=== PATIENT | female | born 1985 | race Caucasian/White ===

== ENCOUNTER → 2023-12-07 | Outpatient (CLI) | payer BC ==
[~2023-12-07] MED LIST: AMOCLA875 PO; AZIT250 PO; CALCA500CH PO; DEXL60CA3; DEXL60CA3 PO; HYDACE5 PO; Hair, Skin & N1 EACH PO; IBUP400 PO; OXYACE5T PO; Percocet 5-3251 EACH PO; SULF10OPSA OD
== END | disposition home or self-care (01) ==
LOC: LAB SHORT 09:30
DX: J02.9 Acute pharyngitis, unspecified (principal)
CPT/HCPCS: 87077; 87081; 87185